=== PATIENT | female | born 1960 | race Two or more races ===

== ENCOUNTER 2023-03-24 06:19 | Day surgery (SDC) | payer OTHER ==
[~2023-03-24] VITALS: Ht 152.4 cm; Wt 61.2 kg
[~2023-03-24 06:19] MED LIST: ANASTROZOLE1 MG PO; AVAPRO300 MG PO; GABAPENTIN800 M1 PO; TRAMADOL HCL E100 MG PO
== END 2023-03-24 19:55 | disposition home or self-care (01) ==
LOC: CIR.AMB 06:19
PROVIDERS: ATTEND Surgery
DX: C50.211 Malignant neoplasm of upper-inner quadrant of right female breast (principal); R92.0 Mammographic microcalcification found on diagnostic imaging of breast; N60.21 Fibroadenosis of right breast; N60.81 Other benign mammary dysplasias of right breast; Z20.822 Contact with and (suspected) exposure to COVID-19; E11.9 Type 2 diabetes mellitus without complications; D68.9 Coagulation defect, unspecified; I10 Essential (primary) hypertension; E78.2 Mixed hyperlipidemia
CPT/HCPCS: 19301; 38525; 38792; 19281; L8699; A9541

== ENCOUNTER 2024-01-12 05:00 | Day surgery (SDC) | payer OTHER ==
[2024-01-10 10:05] LABS: PH,URINE 7.5 (5.0-8.0); URINE APPEARANCE Clear; URINE BILIRRUBIN Negative (NEGATIVE); URINE BLOOD Negative; URINE COLOR Yellow; URINE GLUCOSE Negative (NEGATIVE); URINE LEUKOCYTE Negative; URINE NITRATE Negative; URINE PROTEIN Negative (NEGATIVE); URINE UROBILINOGEN 0.2 E.U./dl
[2024-01-10 10:09] LABS: URINE BACTERIA 36.5 uL (0.0-1933); URINE EPITHELIAL CELLS 2.1 uL (0.0-38.8); URINE WBC 2.7 uL (0.0-23.2)
[2024-01-10 10:36] LABS: HEMATOCRIT 42.1 % (36.0-45.00); HEMOGLOBIN 14.6 g/dL (12.0-15.00); MEAN CELL VOLUME 88.7 fL (80.00-100.00); MEAN CORPUSCULAR HEMOGLOBIN 30.8 pg (27.00-32.0); MEAN CORPUSCULAR HGB CONC 34.7 g/dl (32.0-36.0); PLATELET COUNT 174 K/uL (150-450); RED BLOOD COUNT 4.75 M/uL (4.00-6.00); RED CELL DISTRIBUTION WIDTH 12.1 % (11.5-14.5)
[2024-01-10 11:12] LABS: ALBUMIN 3.7 gm/dL (3.4-5.0); BILIRUBIN TOTAL 0.37 mg/dL (0.3-1.2); CALCIUM 9.2 mg/dL (8.5-10.1); CREATININE SERUM 0.47 mg/dL (0.55-1.02); GFR 134.27; GLOBULINA 3.1 G/DL (2.4-3.5); POTASSIUM 3.25 mEq/L (3.5-5.1); TOTAL PROTEIN 6.8 gm/dL (6.4-8.2)
[2024-01-10 11:20] LABS: INR 1.01; PROTHROMBIN TIME 10.6 SECONDS (9.0-11.5)
[2024-01-12] MEDS ORDERED: CEFAZOLIN SODIUM 1,000 MG VIAL ONE (07:05)
[2024-01-12] MEDS ORDERED: CEFAZOLIN SODIUM 1,000 MG VIAL IV ONE (10:00)
[2024-01-12] MEDS ORDERED: hydrALAZINE HCL 20 MG VIAL ONE (13:03)
== END 2024-01-12 14:55 | disposition home or self-care (01) ==
LOC: CIR.AMB 05:00
PROVIDERS: ATTEND Surgery
DX: C50.211 Malignant neoplasm of upper-inner quadrant of right female breast (principal); L90.5 Scar conditions and fibrosis of skin; Z20.822 Contact with and (suspected) exposure to COVID-19; I10 Essential (primary) hypertension; E11.9 Type 2 diabetes mellitus without complications; E04.1 Nontoxic single thyroid nodule